=== PATIENT | female | born 1995 | race Caucasian/White ===

== ENCOUNTER 2016-04-12 04:01 | Inpatient (IN) ==
--- NOTE | 2016-04-12 04:00 | OB/GYN History & Physical ---
Date of Encounter: 04/12/16 Time of Encounter: 03:58 Assessment and Plan (1) 39 weeks gestation of Current visit: Yes Status: Acute Patient is a at at 39 weeks + 1 day who presents with spontaneous rupture of membranes. Nitrozine positive. Per nursing exam, cervix is 1-2cm, 80% effaement at -1 station. Category 1 heart tracing. Son on the monitor. Will monitor progression of labor and augment if indicated. (2) GBS (group B Streptococcus carrier), +RV culture, currently Current visit: Yes Status: Acute GBS positive. Will started penicillin for intrapartum antibiotic coverage. (3) Elevated blood pressure reading Current visit: Yes Status: Acute Patient with initial elevated blood pressure reading. Will check blood pressure every 15 min initially and will send [facility] labs. (4) Spontaneous rupture of membranes Current visit: Yes Status: Acute History of Present Illness Chief complaint: 39 weeks gestation with spontaneous rupture of membranes HPI: Ms. Fabian is a 20 year old female at 39 weeks + 1 who presents with spontaneous rupture of membranes. Patient reports fluid loss around 2am followed by contractions. She reports good movement. She reports some mucousy vaginal discharge Patient denies any headache, changes in vision, chest pain, SOB, nausea/vomiting, or changes in bladder function. Patient denies any complications with this , no problems with blood sugar or blood pressure. She is B+, rubella non-immune, and GBS positive. Initial blood pressure elevated at 159/93. Nitrozine positive. Per nurse exam, cervix is 1- 2cm, 80% and baby is at -1 station. Past Med Surg Social Fam HX - Past Medical History Medical history: no medical history Psychiatric history: no psych history - Past Surgical History Surgical History: no surgical history - Social History Smoking Status: Never smoker Drug use: none - Family History Sister Age: 22 Living Status: Still Living Hx Family Cardiac Disorders: No Hx Family Respiratory Disorders: No Hx Family Cancer: No Hx Family GI Disorders: No Hx Family Genitourinary Disorders: No Hx Family Endocrine Disorder: No Hx Family Musculoskeletal Disorders: No Hx Family Neuromuscular Disorders: No Hx Family Neurologic Disorders: No Hx Family HEENT Disorders: No Hx Family Autoimmune Disorders: No Hx Family Reproductive Disorders: No Hx Family Psychosocial Disorders: No Hx Family Medical Disorders: No Obstetrical History - Pregnancies : 1 Para: 0 Term: 0 : 0 Ab's: 0 Livin Medications and Allergies Celexa 20 mg PO DAILY 04/12/16 [History] Claritin 10 mg pe PO DAILY 04/12/16 [History] Nexium 40 mg pe PO DAILY 04/12/16 [History] Allergies No Known Allergies Allergy (Verified 04/12/16 03:29) Review of System OB - Constitutional Constitutional ROS IM: no chills, no fever(s) - Cardiovascular Cardiovascular: leg edema, no chest pain, no palpitations - Respiratory Respiratory: no cough, no dyspnea, no wheezing - Gastrointestinal Gastrointestinal: no constipation, no diarrhea, no nausea, no vomiting - Genitourinary Genitourinary: no dysuria, no urinary frequency, no urinary urgency, no vaginal discharge, no vaginal odor, no vaginal pruritis - Neurological Nerological: no headache(s), no other visual disturbances Exam - Vital Signs Vital signs: Initial Vital Signs Temp Pulse Resp BP 97.8 F 90 16 153/91 04/12/16 03:37 04/12/16 03:37 04/12/16 03:37 04/12/16 03:37 - Constitutional Constitutional: well developed, well nourished, no acute distress - HEENT HEENT: Normocephaly, Mucus Membranes Moist - Lungs Respiratory exam: CTAB - Cardiovascular Cardiovascular exam: RRR - Abdomen Abdomen: Present: bowel sounds normal, gravid - Cervix Dilation: 1 Effacement: 80 Station: -1 Results All other labs normal. - VTE Reasons for not Prescribing Prophylaxis: Treatment not Indicated - Low risk for VTE
[~2016-04-12 04:01] MED LIST: Famotidine 20 MG/2 ML VIAL IVP PRN; Metoclopramide 10 MG/2 ML VIAL IVP PRN; Penicillin G Potassium 5,000,000 UNIT in D5% in Water (Mini-Bag+) 100 ML IVPB ONE; Ringers Solution, Lactated 1,000 ML IVC SCH
[2016-04-12 04:14] LABS: Basophils # 0.1 K/mcL (0.0-0.2); Basophils % 0.3 %; Eosinophils # 0.2 K/mcL (0.0-0.6); Eosinophils % 1.1 %; Hematocrit 34.9 % (35.3-44.9); Hemoglobin 11.3 g/dL (11.5-15.4); Immature Granulocytes % 1.8 % (0-4); Lymphocytes # 2.8 K/mcL (0.6-4.6); Lymphocytes % 16.8 %; Mean Corpuscular HGB Conc 32.4 g/dL (31.6-35.5); Mean Corpuscular Volume 86.6 fL (83.0-100.0); Mean Platelet Volume 10.9 fL (9.4-12.4); Neutrophils # 12.2 K/mcL (1.6-8.9); Platelet Count 333 K/mcL (140-400); Red Blood Count 4.03 M/mcL (3.82-4.97); Red Cell Distribution Width 13.8 % (11.5-14.5)
[2016-04-12 04:43] LABS: Alanine Aminotransferase 16 Units/L (0-55); Aspartate Amino Transferase 33 Units/L (5-34); BUN/Creatinine Ratio 11 (6-26); Blood Urea Nitrogen 7 mg/dL (7-20); Lactate Dehydrogenase 253 Units/L (159-327); Uric Acid 4.2 mg/dL (2.6-6.0); eGFR For African Americans > 60 (> 60); eGFR For Non-African Americans > 60 (> 60)
[2016-04-12] MEDS: Ringers Solution, Lactated 1,000 ML IVC SCH ×2 (04:58→08:46)
[2016-04-12 06:45] LABS: Creatinine,Urine 24 mg/dL; Protein/Creatinine Ratio,Urine 0.29 mg/mg (0-0.20)
[2016-04-12] MEDS ORDERED: *HR* Labetalol 20 MG/4 ML SYRINGE IVP ONE ×2 (07:28→07:31)
--- NOTE | 2016-04-12 07:50 | Anesthesia Evaluation PreOp ---
Date of Encounter: 04/12/16 Time of Encounter: 07:47 - Past History Planned Operation: labor epidural Cardiac History: HTN (states this just began last evening, otherwise no history. ) Pulmonary History: Former smoker (smoked briefly right before but immediately quit.) LEARNING DESIGN SPECIALIST History: Denies Any Significant HX, Other (anxiety/depression.) Other Medical History: GERD (well-controlled with nexium.) Anesthesia History: No Prior Anesthetic Complications (never had general anesthesia. No known family history of anesthetic problems.) : Yes Alcohol Use: none Drug use: none Medications and Allergies Celexa 20 mg PO DAILY 04/12/16 [History] Claritin 10 mg pe PO DAILY 04/12/16 [History] Nexium 40 mg pe PO DAILY 04/12/16 [History] Allergies No Known Allergies Allergy (Verified 04/12/16 03:29) - Meds/Allergy Pre-op Review Medications Reviewed: Yes Allergies Reviewed: Yes Beta Blockers on Current Med List: No (receiving labetalol today for increased bp) Anesthesia Results - Labs 04/12/16 03:58 04/12/16 03:58 Anesthesia Exam 155/93, 86, 16, 98% Height: 5'4" Weight: 244 lbs. NPO (# of Hours): 8 hrs. Pain Scale: 8 Pain Scale Used: Numeric (1 - 10) - HEENT Pupil (Motor): Pupils equal, EOMI Mallampati: III Teeth: Normal Oral Opening: Less than or equal to 3 - LEARNING DESIGN SPECIALIST LOC: Oriented LEARNING DESIGN SPECIALIST Motor: Normal RUE, Normal LUE, Normal RLE, Normal LLE, Normal Face LEARNING DESIGN SPECIALIST Sensory: Normal: RUE, LUE, RLE, LLE, Face - Cardiac Rhythm: Regular Murmur: None - Pulmonary Breath Sounds: bilateral Clear Respiratory Effort: Symmetrical Anesthesia Assess/Plan ASA Score: 3 Modified Phoenix Scale for Level of Consciousness: Cooperative, oriented, and tranquil Anesthetic Plan: Regional Monitoring Plan: Standard Monitors
[2016-04-12] MEDS ORDERED: Bupivacaine-MPF 0.25% 10 ML VIAL EP ONE (07:56)
[2016-04-12] MEDS ORDERED: *HR* FentaNYL (PF) 100 MCG/2 ML VIAL EP ONE (07:56)
[2016-04-12] MEDS ORDERED: Epidural Premix (fent/bupiv) 110 ML EP SCH (08:00)
[2016-04-12] MEDS ORDERED: *HR* FentaNYL (PF) 100 MCG/2 ML VIAL ONE (08:26)
[2016-04-12] MEDS ORDERED: Ondansetron 4 MG/2 ML VIAL IVP PRN (08:26)
[2016-04-12] MEDS ORDERED: Epidural Premix (fent/bupiv) 110 ML EP ONE (08:26)
[2016-04-12] MEDS ORDERED: Bupivacaine-MPF 0.25% 10 ML VIAL ONE (08:26)
[2016-04-12] MEDS ORDERED: Ondansetron 4 MG/2 ML VIAL ONE (08:29)
[2016-04-12] MEDS ORDERED: Magnesium Sulfate 20 gm/500mL 20 GM/500 ML IV.SOLN IVC SCH (08:30)
--- NOTE | 2016-04-12 08:31 | OB/GYN Progress Note ---
Date of Encounter: 04/12/16 Time of Encounter: 08:29 - Assessment and Plan (1) Hyperreflexia Current Visit: Yes Status: Acute 1. Will start magnesium 2. Will monitor reflexes. (2) 39 weeks gestation of Current Visit: Yes Status: Acute (3) Elevated blood pressure reading Current Visit: Yes Status: Acute 1. Will monitor for need for further labetalol (4) Spontaneous rupture of membranes Current Visit: Yes Status: Acute 1. Consider Pitocin augmentation. Subjective - Subjective Interval history: Pt requests epidural. Reports intermittent nausea associated with her pain. Objective - Vital Signs Vital Signs: Vital Signs Temp Pulse Resp BP 04/12/16 03:37 97.8 F 90 16 153/91 Intake and Output 04/11/16 04/12/16 04/12/16 23:59 07:59 15:59 Intake Total 100 / 100 Balance 100 / 100 Intake: IV Fluids 100 / 100 Pfizerpen 5,000,000 UNIT 100 / 100 In Dextrose 5% (Minibag+) 100 ML 100 ML @ 100 mls/ hr IVPB ONCE ONE Rx#: [id number] Other: Weight 111.2 kg Patient Weight 04/12/16 23:59 Weight 111.2 kg - Exam FHR: category 1 Auscultation: bilateral: normal Abdomen: Present: gravid Cervical dilation: 4-5 Cervix effacement: 90 station: -1 Comments: +3/4 brisk patellar DTRs bilaterally - Labs Labs: Abnormal lab results WBC 16.5 K/mcL (4.3-11.1) H 04/12/16 03:58 Hgb 11.3 g/dL (11.5-15.4) L 04/12/16 03:58 Hct 34.9 % (35.3-44.9) L 04/12/16 03:58 Neutrophils # 12.2 K/mcL (1.6-8.9) H 04/12/16 03:58 Protein/Creatinin Ratio 0.29 mg/mg (0-0.20) H 04/12/16 05:12
[2016-04-12] MEDS: Penicillin G Potassium 2,500,000 UNIT in D5% in Water 100 ML IVPB SCH ×2 (08:40→12:51)
[2016-04-12] MEDS ORDERED: EPHEDrine 50 MG/ML VIAL ONE (09:54)
[2016-04-12] MEDS ORDERED: Oxytocin 20 units/ LR 1000 mL 20 UNIT/1,000 ML BAG IVC SCH (10:00)
--- NOTE | 2016-04-12 10:05 | Anesthesia Procedures ---
Date of Encounter: 04/12/16 Time of Encounter: 09:12 Procedures: Anesthesia - Epidural/Spinal Patient ID/Chart reviewed: Yes Patient examined: Yes OB Eval: Gestational age: 39 OB Eval: : 1 OB Eval: Hx Para: 0 OB Eval: Dilated at (cm): 4 OB Eval: Contractions: Non-stressed pattern Consent Obtained: Yes Supplemental Oxygen: None/Room Air Site Prep: Aseptic Technique, Sterile prep and drape, Povidone-Iodine 1% Patient position: upright Local Anesthetic: Lidocaine 1% Amount of Local Anesthetic used: 5 Touhy Needle Gauge: 18 Touhy Needle Depth (cm): 7 Catheter Depth at Skin (cm): 20 Test Dose (1.5% Lido + Epi): Volume given (mls): 3 Test Dose Result: Negative Loading Dose: 0.25% Marcaine (mls): 8 Loading Dose: Fentanyl (mcg): 100 Loading Dose Administered: Thru Catheter Infusion Med: 0.125% Bupivacaine w/ 2 mcg/ml Fentanyl Infusion Rate (mls/hr): [address]: Tegaderm, Tape Interspace Used: L3-L4 Loss of Resistance (CIRA): Yes Blood: No CSF: No Paresthesia: No Procedure: Epidural placed per ghanshyam ibrahim crna Vitals + FHT's: 3 Vital Signs Time 0915 0930 0935 0940 0945 BP 145/92 162/91 152/80 146/73 132/74 Pulse 95 100 95 82 80 FHTs 120 120 120 120 120
--- NOTE | 2016-04-12 10:14 | Anesthesia Progress Note ---
Date of Encounter: 04/12/16 Time of Encounter: 09:55 Anesthesia Note - Note Note: 04/12/16 10:12 noted drop in patients BP 90/50. Ephedrine 5mg given with improvement to 105/ 65. At 1013 111/54.
--- NOTE | 2016-04-12 15:49 | OB/GYN Procedure Note ---
Delivery - Delivery Date: 04/12/16 Provider: Garret Banda Intrapartum events: none, other(please specify) (Preeclampsia. Placed On magnesium sulfate.) Delivery induction: none Delivery augmentation: pitocin Delivery monitor: external FHT, external uterine, internal uterine Anesthesia: epidural Estimated Blood Loss: 400 - (s) A Infant Delivery Date: 04/12/16 Delivery Time: 15:19 Presentation: vertex Position: UMER Route of delivery: Gender: Female Viability: Viable Pounds: 6 Ounces: 9 Weight Gram: 2.975 kg at 1 minute: 8 at 5 mins: 9 Shoulder Dystocia: not encountered Placenta: spontaneous Cord: 3 umbilical vessels - Repair Episiotomy: none Laceration Description: Perineal - 1st Degree (Repaired with 3-0 Monocryl.) - Complications Delivery complications: none - Disposition Mom disposition: stable in LDR [place] disposition: stable in LDR
[2016-04-12] MEDS ORDERED: Oxytocin 20 units/ LR 1000 mL 20 UNIT/1,000 ML BAG IV SCH (19:25)
[2016-04-12] MEDS ORDERED: Oxytocin 20 units/ LR 1000 mL 20 UNIT/1,000 ML BAG IVC ONE (19:25)
[2016-04-12] MEDS: Magnesium Sulfate 20 gm/500mL 20 GM/500 ML IV.SOLN IVC SCH (20:10)
[2016-04-12] MEDS: Ibuprofen 600 MG TABLET PO PRN (20:11)
[2016-04-12] MEDS: Acetaminophen 325 MG TABLET PO PRN (23:06)
[2016-04-13] MEDS ORDERED: Ringers Solution, Lactated 1,000 ML ONE (03:04)
[2016-04-13] MEDS: Ibuprofen 600 MG TABLET PO PRN ×3 (04:12→18:30)
[2016-04-13] MEDS: Magnesium Sulfate 20 gm/500mL 20 GM/500 ML IV.SOLN IVC SCH (04:12)
[2016-04-13 04:43] LABS: Basophils % 0.2 %; Eosinophils # 0.1 K/mcL (0.0-0.6); Eosinophils % 0.6 %; Immature Granulocytes % 1.5 % (0-4); Lymphocytes # 3.2 K/mcL (0.6-4.6); Lymphocytes % 15.8 %; Mean Corpuscular HGB Conc 32.5 g/dL (31.6-35.5); Mean Corpuscular Hemoglobin 28.3 pg (28.0-33.3); Mean Platelet Volume 10.8 fL (9.4-12.4); Monocytes # 1.4 K/mcL (0.0-1.3); Monocytes % 6.8 %; Neutrophils # 15.3 K/mcL (1.6-8.9); Platelet Count 287 K/mcL (140-400); Red Blood Count 3.22 M/mcL (3.82-4.97); Red Cell Distribution Width 13.8 % (11.5-14.5); Segmented Neutrophils % 75.1 %
[2016-04-13 05:14] LABS: Alanine Aminotransferase 16 Units/L (0-55); Aspartate Amino Transferase 28 Units/L (5-34); BUN/Creatinine Ratio 7 (6-26); Lactate Dehydrogenase 231 Units/L (159-327); Uric Acid 4.5 mg/dL (2.6-6.0); eGFR For African Americans > 60 (> 60); eGFR For Non-African Americans > 60 (> 60)
[2016-04-13 05:17] LABS: Blood Urea Nitrogen 4 mg/dL (7-20); Hemoglobin 9.1 g/dL (11.5-15.4)
[2016-04-13] MEDS: Prenatal Vit/FA 1 EACH TABLET PO SCH (08:23)
[2016-04-13] MEDS: Acetaminophen 325 MG TABLET PO PRN ×2 (08:27→13:57)
--- NOTE | 2016-04-13 10:10 | OB/GYN Progress Note ---
Date of Encounter: 04/13/16 Time of Encounter: 10:07 - Assessment and Plan (1) (normal spontaneous vaginal delivery) Current Visit: Yes Status: Acute Pt meeting milestones. (2) Preeclampsia Current Visit: Yes Status: Acute BP normal today. Pt denies sx preeclampsia. Will complete 24 hours magnesium. Qualifiers: Trimester: unspecified trimester Qualified Code(s): O14.90 - Unspecified pre-eclampsia, unspecified trimester Subjective - Subjective Patient reports: appetite normal, voiding normally, pain well controlled, ambulating normally : doing well Objective - Latest Vital Signs Latest vital signs: Vital Signs Temp Pulse Pulse Resp BP Pulse Ox 04/13/16 09:00 90 18 130/80 04/13/16 08:00 91 18 135/77 04/13/16 06:05 84 12 111/70 04/13/16 05:00 87 16 130/85 04/13/16 04:00 98.7 F 93 18 137/82 99 04/13/16 03:00 98 16 138/84 04/13/16 02:05 102 18 130/81 04/13/16 01:00 102 16 118/84 04/13/16 00:00 98.7 F 92 18 127/69 97 04/12/16 23:00 101 16 147/69 04/12/16 22:10 105 18 129/75 04/12/16 21:00 98.7 F 102 16 147/92 99 04/12/16 20:00 110 106 16 133/77 04/12/16 18:51 98.4 F 108 16 166/85 100 04/12/16 17:59 98.2 F 98 16 151/83 99 04/12/16 14:45 18 04/12/16 13:45 18 04/12/16 12:45 81 18 128/69 04/12/16 11:45 18 04/12/16 10:45 18 Intake and Output 04/12/16 04/13/16 04/13/16 23:59 07:59 15:59 Intake Total 0 / 0 800 / 800 100 / 100 Output Total 1700 / 1700 1000 / 1000 Balance -1700 / -1700 -200 / -200 100 / 100 Intake: IV Fluids 0 / 0 500 / 500 Magnesium Sulfate 20 gm/ 500 / 500 500mL Premix 20 gm In 500 ml @ 2 GM/HR 50 mls/hr IVC .Q10H DESHAWN Rx#: [id number] Pitocin 20 unit In 1,000 0 / 0 ml @ Per Protocol IVC . Q0M DESHAWN Rx#:[id number] Oral 300 / 300 100 / 100 Output: Urine 1700 / 1700 1000 / 1000 Other: Weight 109.4 kg - Exam Lungs: bilateral: normal Chest: Normal S1, Normal S2 Extremities: Present: normal Abdomen: Present: soft. Absent: tenderness Uterus: Present: firm. Absent: tenderness Uterus Position: At Umbilicus - Labs Labs: Laboratory Results - last 24 hr 04/13/16 04/13/16 04:03 04:03 WBC 20.4 H RBC 3.22 L Hgb 9.1 L D Hct 28.0 L MCV 87.0 MCH 28.3 MCHC 32.5 RDW 13.8 Plt Count 287 MPV 10.8 Immature Gran % 1.5 Seg Neutrophils % 75.1 Lymphocytes % 15.8 Monocytes % 6.8 Eosinophils % 0.6 Basophils % 0.2 Neutrophils # 15.3 H Lymphocytes # 3.2 Monocytes # 1.4 H Eosinophils # 0.1 Basophils # 0.0 Immature Plt Fraction 7.0 H BUN 4 L Creatinine 0.58 Est GFR ( Amer) > 60 Est GFR (Non-Af Amer) > 60 BUN/Creatinine Ratio 7 Uric Acid 4.5 AST 28 ALT 16 Lactate Dehydrogenase 231
[2016-04-13] MEDS ORDERED: *HR* HYDROcodone/Acet 5/325 mg TABLET PO ONE (21:12)
[2016-04-14] MEDS: Ibuprofen 600 MG TABLET PO PRN (04:26)
[2016-04-14 08:20] VITALS: BP 137/89
[2016-04-14] MEDS: Prenatal Vit/FA 1 EACH TABLET PO SCH (09:13)
--- NOTE | 2016-04-14 10:56 | Discharge Summary ---
Date of Encounter: 04/14/16 Time of Encounter: 10:56 - Discharge Diagnosis (1) (normal spontaneous vaginal delivery) Priority: Primary Status: Acute (2) Preeclampsia Priority: Secondary Status: Acute Comments: BP normal . P denies s/sx preeclampsia. Pt to follow-up for BP check in 1 week. Qualifiers: Trimester: unspecified trimester Qualified Code(s): O14.90 - Unspecified pre-eclampsia, unspecified trimester - Discharge Medications Prescriptions: Ibuprofen [Motrin] 600 mg PO Q6HR PRN #60 tablet PRN Reason: Cramping Docusate [Colace] 100 mg PO BID #60 capsule Ferrous Sulfate 325 mg PO DAILY #30 tablet Home Medications: Celexa 20 mg PO DAILY 04/12/16 [History] Claritin 10 mg pe PO DAILY 04/12/16 [History] Nexium 40 mg pe PO DAILY 04/12/16 [History] Docusate [Colace] 100 mg PO BID #60 capsule 04/14/16 [Rx] Ferrous Sulfate 325 mg PO DAILY #30 tablet 04/14/16 [Rx] Ibuprofen [Motrin] 600 mg PO Q6HR PRN #60 tablet 04/14/16 [Rx] Allergies/Adverse Reactions: Allergies No Known Allergies Allergy (Verified 04/12/16 03:29) Data Procedures and tests throughout hospitalization: Laboratory Tests 04/12/16 04/12/16 04/12/16 03:58 03:58 05:12 WBC 16.5 H RBC 4.03 Hgb 11.3 L Hct 34.9 L MCV 86.6 MCH 28.0 MCHC 32.4 RDW 13.8 Plt Count 333 MPV 10.9 Immature Gran % 1.8 Seg Neutrophils % 74.0 Lymphocytes % 16.8 Monocytes % 6.0 Eosinophils % 1.1 Basophils % 0.3 Neutrophils # 12.2 H Lymphocytes # 2.8 Monocytes # 1.0 Eosinophils # 0.2 Basophils # 0.1 Immature Plt Fraction BUN 7 Creatinine 0.62 Est GFR ( Amer) > 60 Est GFR (Non-Af Amer) > 60 BUN/Creatinine Ratio 11 Uric Acid 4.2 AST 33 ALT 16 Lactate Dehydrogenase 253 Urine Creatinine 24 Protein/Creatinin Ratio 0.29 H Urine Total Protein < 7 04/13/16 04/13/16 04:03 04:03 WBC 20.4 H RBC 3.22 L Hgb 9.1 L D Hct 28.0 L MCV 87.0 MCH 28.3 MCHC 32.5 RDW 13.8 Plt Count 287 MPV 10.8 Immature Gran % 1.5 Seg Neutrophils % 75.1 Lymphocytes % 15.8 Monocytes % 6.8 Eosinophils % 0.6 Basophils % 0.2 Neutrophils # 15.3 H Lymphocytes # 3.2 Monocytes # 1.4 H Eosinophils # 0.1 Basophils # 0.0 Immature Plt Fraction 7.0 H BUN 4 L Creatinine 0.58 Est GFR ( Amer) > 60 Est GFR (Non-Af Amer) > 60 BUN/Creatinine Ratio 7 Uric Acid 4.5 AST 28 ALT 16 Lactate Dehydrogenase 231 Urine Creatinine Protein/Creatinin Ratio Urine Total Protein Date of admission: 04/12/16 04:01 Primary care physician: Dyan Todd Consults: 04/12/16 19:25 Consult to Income Tax Analyst [CONS] Routine Comment: Vaginal delivery, consult needed Discharging clinician: Iman Bradshaw Anticipated date of discharge: 04/14/16 - Patient Status Disposition: Home, Self-Care Condition: Good Functional capacity at discharge: independent ambulation Overall status at discharge: patient is progressing back to baseline - Discharge Instructions Follow Up With: Dyan Vance MD [Primary Care Provider] - Danny Hopkins MD [Partnered Physician] - Additional Instructions: Perineal Care: Always wipe front to back Change your pad frequently Use your kim bottle with warm water and spray front to back Do not douche, use tampons, have sexual intercourse or put anything in your vagina for 4-6 weeks after delivery Bleeding: Vaginal bleeding can last up to 6 weeks Your menstrual period may return as early as 6 weeks after you are discharged from the hospital [place]/Stitches Care: Vaginal Delivery Vaginal stitches will dissolve within 4-6 weeks Follow perineal care instructions Care Stitches will dissolve on their own If you have shobha, they will need to be removed in the doctors office within 5-7 days. You may shower with stitches or shobha Drip plan or soapy water over the incision to clean. Pat dry gently with a clean towel. Make sure you completely dry under the skin folds DO NOT USE powders, lotions, rubbing alcohol or hydrogen peroxide on or around your incision. This will slow your wound healing It is normal to have soreness, burning, tingling, itchiness and/or numbness as your incision heals Activity: Rest frequently Do not lift anything heavier than a gallon of milk, up to 10-15 pounds No driving for 1-2 weeks for Vaginal delivery No driving for 2-4 weeks for delivery Take stairs slowly, one at a time Gradually increase your daily activity until you are back to your normal routine Do not exercise until you have had your follow-up appointment Bathing: Take a shower daily Do not take a tub bath for the first 4 weeks Diet: Drink plenty of water and fruit juices Eat a well-balanced diet with foods high in fiber such as fruits and vegetables Depression: Your hormones have a major impact on your feelings and emotions. Hormone imbalance may cause changes in your mood, creating unfamiliar thoughts and actions. Support is available to help you understand and cope with these feelings and mood changes. If you answer yes to any of the following questions, please call your health care provider: Are you having trouble sleeping? Are you feeling isolated? Have you lost your appetite? Are you having thoughts of hurting yourself or others? WARNING SIGNS: Heavy bleeding from the vagina (blood is bright red and soaks a sanitary pad in an hour or less.) Passing a blood clot larger than your fist Discharge from the vagina that has a bad odor Temperature over 100.4 F, or if you feel cold and have chills An episiotomy site that is warm, swollen or oozing. Use a mirror if needed Urination (pee) that is painful, very red and swollen or leaking fluid An incision that is painful, very red and swollen and leaking fluid An incision that has come open Breasts that are painful or full with flu like symptoms Redness, warmth or swelling in the calf of your leg Trouble breathing, dizziness, visual disturbance or faintness *Notify your health care provider immediately or go to the nearest Emergency Room if you experience any of the above signs.* To contact the nurses station 24 hours a day, For non-urgent, routine questions, please call the office at - Diet and Activity Activity: increase activity as tolerated Diet: advance to your usual diet Hospital Course Reason for admission: active labor Delivery: Episiotomy: none Laceration: 1st degree Other procedures: none complications: none Discharge diagnosis: IUP at term delivered [place] baby: female Hospital course: - Delivery Date: 04/12/16 Provider: Garret Banda Intrapartum events: none, other(please specify) (Preeclampsia. Placed On magnesium sulfate.) Delivery induction: none Delivery augmentation: pitocin Delivery monitor: external FHT, external uterine, internal uterine Anesthesia: epidural Estimated Blood Loss: 400 - Infant (s) Infant A Infant Delivery Date: 04/12/16 Delivery Time: 15:19 Presentation: vertex Position: UMER Route of delivery: Gender: Female Viability: Viable Pounds: 6 Ounces: 9 Weight Gram: 2.975 kg at 1 minute: 8 at 5 mins: 9 Shoulder Dystocia: not encountered Placenta: spontaneous Cord: 3 umbilical vessels - Repair Episiotomy: none Laceration Description: Perineal - 1st Degree (Repaired with 3-0 Monocryl.) - Complications Delivery complications: none - Disposition Mom disposition: home PPD#2 disposition: home with mother, Time Attestation: Total time spent providing and/or coordinating discharge services: Time Spent: Less than 30 minutes Exam - Constitutional Vitals: Temp Pulse Resp BP Pulse Ox 98.6 F 79 18 137/89 98 04/14/16 08:19 04/14/16 08:19 04/14/16 09:20 04/14/16 08:19 04/14/16 04:15 General appearance IM: A&O X 3, pleasant, no acute distress - Respiratory Respiratory exam: Present: CTAB - Cardiovascular Cardiovascular exam IM: Present: RRR, +S1, +S2 - GI/Abdominal GI/Abdominal exam IM: soft - Rectal Rectal exam: deferred - Uterine Tone: Firm Uterus Position: 1 Finger Below Umbilicus - Extremities Exam Extremities exam IM: Present: normal inspection, pedal edema (1+ edema bilaterally) - Neurological Exam Neurological exam: normal gait, oriented X3 - Psychiatric Additional comments: reports good mood
== END 2016-04-14 11:48 | disposition home or self-care (01) | DRG 560 ==
LOC: 1NENULAB → 1NENUOBS 17:58
PROVIDERS: ADMIT Obstetrics & Gynecology; ATTEND Obstetrics & Gynecology